=== PATIENT | male | born 1995 | race American Indian/Alaskan Native ===

== ENCOUNTER 2018-03-11 03:30 | Emergency (ER) | payer SELFPAY ==
[2018-03-11 04:14] VITALS: BMI 23.1
[2018-03-11 04:16] VITALS: RESP 18; TEMP 97.6; O2SAT 100
[2018-03-11] MEDS ORDERED: cefTRIAXone (Rocephin) 250 mg Inj IM STA (04:32)
--- NOTE | 2018-03-11 04:40 | ED PDOC ---
Arrival/HPI - General Chief Complaint: Male Genitourinary Time Seen by Provider: 03/11/18 04:29 Historian: Patient - History of Present Illness Narrative History of Present Illness (Text): 03/11/18 04:33 Prateek Francis is a 22 year old male who presents to the emergency department requesting STD prophylaxis. Patient states he recently had unprotected sexual intercourse and is concerned he may have an STD. Patient requesting STD testing and prophylaxis. Patient denies any penile discharge, abdominal pain, urinary symptoms, or any other complaints. Symptom Onset: Gradual Symptom Course: Unchanged Activities at Onset: Light Context: Home Past Medical History - Provider Review Nursing Documentation Reviewed: Yes - Psychiatric Hx Substance Use: Yes - Surgical History Hx Musculoskeletal Surgery: Yes (r knee) Family/Social History - Physician Review Nursing Documentation Reviewed: Yes Family/Social History: Unknown Family HX Smoking Status: Never Smoked Hx Alcohol Use: No Hx Substance Use: Yes Substance used: marijuana Allergies/Home Meds Allergies/Adverse Reactions: Allergies tomato Allergy (Verified 03/11/18 04:14) URTICARIA SEAFOOD Allergy (Uncoded 05/30/16 06:21) RASH Home Medications: Home Meds Medication Instructions Recorded Confirmed No Known Home Med 05/26/16 05/26/16 No Known Home Med 03/11/18 03/11/18 Review of Systems - Physician Review All systems were reviewed & negative as marked: Yes - Review of Systems Constitutional: Normal. absent: Fevers Eyes: Normal ENT: Normal Respiratory: Normal. absent: SOB, Cough Cardiovascular: Normal. absent: Chest Pain Gastrointestinal: Normal. absent: Abdominal Pain, Diarrhea, Nausea, Vomiting Genitourinary Male: absent: Frequency, Hematuria, Urinary Output Changes Musculoskeletal: Normal. absent: Back Pain, Neck Pain Skin: Normal. absent: Rash Neurological: Normal. absent: Headache, Dizziness Endocrine: Normal Hemo/Lymphatic: Normal Psychiatric: Normal Physical Exam Vital Signs Reviewed: Yes Vital Signs Temp Pulse Resp BP Pulse Ox 03/11/18 05:03 65 18 120/74 100 03/11/18 04:21 97.6 F 66 18 144/76 100 03/11/18 04:14 97.6 F 66 18 144/76 100 Temperature: Afebrile Blood Pressure: Normal Pulse: Regular Respiratory Rate: Normal Appearance: Positive for: Well-Appearing, Non-Toxic, Comfortable Pain Distress: None Mental Status: Positive for: Alert and Oriented X 3 - Systems Exam Head: Present: Atraumatic, Normocephalic Pupils: Present: PERRL Extroacular Muscles: Present: EOMI Conjunctiva: Present: Normal Mouth: Present: Moist Mucous Membranes Neck: Present: Normal Range of Motion Respiratory/Chest: Present: Clear to Auscultation, Good Air Exchange. No: Respiratory Distress, Accessory Muscle Use Cardiovascular: Present: Regular Rate and Rhythm, Normal S1, S2. No: Murmurs Abdomen: No: Tenderness, Distention, Peritoneal Signs Back: Present: Normal Inspection Upper Extremity: Present: Normal Inspection. No: Cyanosis, Edema Lower Extremity: Present: Normal Inspection. No: Edema Neurological: Present: GCS=15, CN II-XII Intact, Speech Normal Skin: Present: Warm, Dry, Normal Color. No: Rashes Psychiatric: Present: Alert, Oriented x 3, Normal Insight, Normal Concentration Medical Decision Making ED Course and Treatment: 03/11/18 04:33 Impression: 22 year old male requesting STD testing and prophylaxis. Plan: -- Chlamydia/GC RNA -- Rocephin -- Zithromax -- Reassess and disposition Progress Notes: - Medication Orders Current Medication Orders: Discontinued Medications Azithromycin (Zithromax) 1,000 mg PO ONCE STA PRN Reason: Protocol Stop: 03/11/18 04:34 Last Admin: 03/11/18 04:46 Dose: 1,000 mg Ceftriaxone Sodium (Rocephin) 250 mg IM STAT STA PRN Reason: Protocol Stop: 03/11/18 04:33 Last Admin: 03/11/18 04:48 Dose: 250 mg IM Administration Charges Document 03/11/18 04:48 RG (Rec: 03/11/18 04:48 RG [id number]) Injection Site MAR Injection Site Left Gluteus Rell Charges for Administration # of IM Administrations 1 - Scribe Statement The provider has reviewed the documentation as recorded by the Andrey Fofana Provider Scribe Attestation: All medical record entries made by the Scribe were at my direction and personally dictated by me. I have reviewed the chart and agree that the record accurately reflects my personal performance of the history, physical exam, medical decision making, and the department course for this patient. I have also personally directed, reviewed, and agree with the discharge instructions and disposition. Disposition/Present on Arrival - Present on Arrival Any Indicators Present on Arrival: No History of DVT/PE: No History of Uncontrolled Diabetes: No Urinary Catheter: No History of Decub. Ulcer: No History Surgical Site Infection Following: None - Disposition Have Diagnosis and Disposition been Completed?: Yes Diagnosis: Sexually transmitted disease (STD), Urethritis, nonspecific Disposition: HOME/ ROUTINE Disposition Time: 05:00 Condition: GOOD Discharge Instructions (ExitCare): Urethritis (DC) Referrals: FAMILY PROVIDER,NO [Primary Care Provider] - Follow up with primary Forms: [employer] (Paraguayan)
[2018-03-11 05:41] VITALS: BP 120/74; PULSE 65
== END 2018-03-11 05:03 | disposition home or self-care (01) ==
LOC: MERGE 03:30 → ED 03:30
DX: N34.1 Nonspecific urethritis (principal); A64 Unspecified sexually transmitted disease
CPT/HCPCS: 87491; 87591; 96372; 99283; J0696

== ENCOUNTER 2018-08-03 17:21 | Emergency (ER) | payer SELFPAY ==
[2018-08-03 18:37] VITALS: BMI 24.3
[2018-08-03 18:41] VITALS: BP 145/62; PULSE 82; RESP 18; TEMP 97.9; O2SAT 100
--- NOTE | 2018-08-03 19:07 | ED PDOC ---
Arrival/HPI - General Historian: Patient - History of Present Illness Narrative History of Present Illness (Text): 08/03/18 18:53 22 y/o male, pmh including gonorrhea, nkda, c/o here for prophylatic treatment for gonorrhea/chlamydia. Pt. stated that he has exposure to the possible gonorrhea/chlamydia couple days ago, no urinary symptoms, asymptomatic, no testicular pain or discomfort, request to be prophylatically treated with rocephine and azithromycin. Pt. stated he had rt. eye surgery about [address] [facility], been having rt. eye irritation on the rt. upper outer lid and associated with vision change x 2 days, no fall or trauma, no headache or night sweat, stated that it usually gets better with oral steroid and topical opthalmic eye drop, no numbness or tingling, no other medical or psychological complaints. <Avi Candelaria - Last Filed: 08/03/18 19:44> <Jeremiah Ortiz - Last Filed: 08/04/18 02:19> - General Chief Complaint: Male Genitourinary Time Seen by Provider: 08/03/18 18:52 Past Medical History - Provider Review Nursing Documentation Reviewed: Yes - Infectious Disease Hx of Infectious Diseases: None - Musculoskeletal/Rheumatological Hx Musculoskeletal Disorders: Yes Other/Comment: LATERAL MENISCUS TEAR - Psychiatric Hx Substance Use: Yes - Surgical History Hx Musculoskeletal Surgery: Yes (r knee) - Anesthesia Hx Anesthesia: Yes Hx Anesthesia Reactions: No Hx Malignant Hyperthermia: No <Avi Candelaria - Last Filed: 08/03/18 19:44> Family/Social History - Physician Review Nursing Documentation Reviewed: Yes Family/Social History: Unknown Family HX Smoking Status: Never Smoked Hx Alcohol Use: No Hx Substance Use: Yes Substance used: marijuana <Avi Candelaria - Last Filed: 08/03/18 19:44> Allergies/Home Meds <Avi Candelaria - Last Filed: 08/03/18 19:44> <Jeremiah Ortiz - Last Filed: 08/04/18 02:19> Allergies/Adverse Reactions: Allergies tomato Allergy (Verified 03/11/18 04:14) URTICARIA SEAFOOD Allergy (Uncoded 05/30/16 06:21) RASH Home Medications: Home Meds Medication Instructions Recorded Confirmed RX: No Known Home Med 05/26/16 05/26/16 RX: No Known Home Med 03/11/18 03/11/18 Review of Systems - Review of Systems Constitutional: absent: Fatigue, Fevers Eyes: Vision Changes, Other (+rt. eye discomfort). absent: Photophobia ENT: absent: Hearing Changes Respiratory: absent: SOB, Cough Cardiovascular: absent: Chest Pain Gastrointestinal: absent: Abdominal Pain, Diarrhea, Nausea, Vomiting Skin: absent: Rash, Pruritis Neurological: absent: Headache, Dizziness Psychiatric: absent: Anxiety, Depression, Suicidal Ideation <Avi Candelaria Q - Last Filed: 08/03/18 19:44> Physical Exam Vital Signs Reviewed: Yes Vital Signs Temp Pulse Resp BP Pulse Ox 08/03/18 18:40 97.9 F 82 18 145/62 100 Temperature: Afebrile Blood Pressure: Normal Pulse: Regular Respiratory Rate: Normal Appearance: Positive for: Well-Appearing, Non-Toxic, Comfortable Pain Distress: None Mental Status: Positive for: Alert and Oriented X 3 - Systems Exam Head: Present: Atraumatic, Normocephalic Pupils: Present: PERRL, Other (Eyes: rt. eye w/o correction 20/400 vs. left eye w/o correction 20/30, mild rt. conjunctivitis, no periorbital swelling or edema, no cellulitis, rt. eye with fuorsein strip and show no corneal abrasion/ulcer or corneal laceration, negative shukri sign on the rt. eye, negative dendritic lesion on the rt. eye, rt. eye intraocular pressure 17 ) Extroacular Muscles: Present: EOMI. No: Gaze Palsy, Entrapment Conjunctiva: Present: Other (Rt. upper lateral inner eyelid noted to have 0.5cm cyst lesion noted, no stye or fluctuant abscess noted. ) Ears: Present: NORMAL TM, Normal Canal. No: Erythema Mouth: Present: Moist Mucous Membranes Pharnyx: No: ERYTHEMA, EXUDATE, TONSILS ENLARGED Nose (External): Present: Atraumatic. No: Abrasion, Contusion, Laceration Nose (Internal): Present: Normal Inspection, No Active Bleeding Neck: Present: Normal Range of Motion, Trachea Midline. No: MIDLINE TENDERNESS, Paraspinal Tenderness, Lymphadenopathy Respiratory/Chest: Present: Clear to Auscultation, Good Air Exchange. No: Respiratory Distress, Accessory Muscle Use Cardiovascular: Present: Regular Rate and Rhythm, Normal S1, S2. No: Murmurs Abdomen: No: Tenderness, Distention, Peritoneal Signs, Rebound, Guarding Back: Present: Normal Inspection. No: CVA Tenderness, Midline Tenderness, Paraspinal Tenderness Upper Extremity: Present: Normal Inspection, Normal ROM, NORMAL PULSES, Neurovascularly Intact, Norm 2-Pt Discrimination. No: Cyanosis, Edema, Tenderness, Swelling, Deformity Lower Extremity: Present: Normal Inspection, NORMAL PULSES, Normal ROM, Neurovascularly Intact, Capillary Refill < 2 s. No: Edema, Tenderness, Swelling, Deformity Neurological: Present: GCS=15, CN II-XII Intact, Speech Normal, Motor Func Grossly Intact, Gait Normal, Memory Normal Skin: Present: Warm, Dry, Normal Color. No: Rashes Psychiatric: Present: Alert, Oriented x 3, Normal Insight, Normal Concentration <Avi Candelaria - Last Filed: 08/03/18 19:44> Vital Signs Temp Pulse Resp BP Pulse Ox 08/03/18 20:16 97.9 F 82 18 145/62 100 08/03/18 18:40 97.9 F 82 18 145/62 100 <Jeremiah Ortiz - Last Filed: 08/04/18 02:19> Medical Decision Making ED Course and Treatment: 08/03/18 19:10 -rocephine/azithromycin -Rt. eye exam show no corneal injury, normal intraocular pressure. 08/03/18 19:40 -I explained the case to Dr. Burton, discussed about the case/exam and recommend no prescription, will see him tomorrow 10am -Pt. examined by Dr. Ortiz as well and agreed with this consult. -Discharge home with education on follow up with Dr. Burton tomorrow 10am for further evaluation, go to your own opthalmologist tomorrow as well, return to the ER for any new or worsening signs or symptoms. <Avi Candelaria - Last Filed: 08/03/18 19:44> - Medication Orders Current Medication Orders: Discontinued Medications Azithromycin (Zithromax) 1,000 mg PO STAT STA; Protocol Stop: 08/03/18 19:11 Last Admin: 08/03/18 20:16 Dose: 1,000 mg Ceftriaxone Sodium (Rocephin) 250 mg IM STAT STA; Protocol Stop: 08/03/18 19:11 Last Admin: 08/03/18 20:16 Dose: 250 mg IM Administration Charges Document 08/03/18 20:16 [facility]CS (Rec: 08/03/18 20:16 [facility]) Injection Site MAR Injection Site Left Gluteus Rell Charges for Administration # of IM Administrations 1 <Jeremiah Ortiz - Last Filed: 08/04/18 02:19> - PA / ENGINE TESTING SUPERVISOR / Resident Statement SHABBIR has reviewed & agrees with the documentation as recorded. <Avi Candelaria - Last Filed: 08/03/18 19:44> - PA / ENGINE TESTING SUPERVISOR / Resident Statement SHABBIR has reviewed & agrees with the documentation as recorded. SHABBIR has examined the patient and agrees with the treatment plan. <Jeremiah Ortiz - Last Filed: 08/04/18 02:19> Disposition/Present on Arrival - Present on Arrival Any Indicators Present on Arrival: No History of DVT/PE: No History of Uncontrolled Diabetes: No Urinary Catheter: No History of Decub. Ulcer: No History Surgical Site Infection Following: None - Disposition Have Diagnosis and Disposition been Completed?: Yes Disposition Time: 19:42 Patient Plan: Discharge <Avi Candelaria - Last Filed: 08/03/18 19:44> <Jeremiah Ortiz - Last Filed: 08/04/18 02:19> - Disposition Diagnosis: Concern about STD in male without diagnosis, Blurry vision, right eye Disposition: HOME/ ROUTINE Condition: GOOD Additional Instructions: -Discharge home with education on follow up with Dr. Burton tomorrow 10am for further evaluation, avoid driving or operating machine with your blurry vision, go to your own opthalmologist tomorrow as well, return to the ER for any new or worsening signs or symptoms. Referrals: FAMILY PROVIDER,NO [Primary Care Provider] - Follow up with primary Daniel Burton MD [Staff Provider] - Follow up with primary Forms: [employer] (Maori)
[2018-08-03] MEDS ORDERED: cefTRIAXone (Rocephin) 250 mg Inj IM STA (19:10)
== END 2018-08-03 20:16 | disposition home or self-care (01) ==
LOC: ED 17:21
DX: Z04.89 Encounter for examination and observation for other specified reasons (principal); H53.8 Other visual disturbances
CPT/HCPCS: 96372; 99283; J0696